=== PATIENT | female | born 1995 | race Caucasian/White ===

== ENCOUNTER 2020-06-26 11:02 | Emergency (ER) | payer OTHER, SELFPAY ==
[~2020-06-26 11:02] MED LIST: OMEPRAZOLE20 M1 PO; ONDANSETRON ODT4 MG SL
[2020-06-26 12:04] LABS: HEMOGLOBIN 15.1 gm/dl (12.3-15.3); RED BLOOD COUNT 4.86 M/UL (4.00-5.10); WHITE BLOOD COUNT 9.6 K/UL (4.5-11.0)
[2020-06-26 12:36] LABS: BUN/CREATININE RATIO 26 (0-10)
[2020-09-24] MEDS ORDERED: HYDROCODON-ACE1 EAC4 PO (08:23)
== END 2020-06-26 13:13 | disposition home or self-care (01) ==
LOC: ER1 11:02
PROVIDERS: Physician Assistant
DX: R11.2 Nausea with vomiting, unspecified (principal)
CPT/HCPCS: 80053; 82150; 83690; 85025; 96374; 96375; 99283; G0480; J1885; J2550

== ENCOUNTER 2020-08-01 08:16 | Emergency (ER) | payer OTHER ==
[2020-08-01 09:13] LABS: HEMOGLOBIN 14.9 gm/dl (12.3-15.3); RED BLOOD COUNT 4.73 M/UL (4.00-5.10); WHITE BLOOD COUNT 12.6 K/UL (4.5-11.0)
[2020-08-01 09:34] LABS: BUN/CREATININE RATIO 11 (0-10)
[2020-08-01] MEDS ORDERED: CARAFATE 1 GM TA1 GM PO (14:15)
[2020-08-01] MEDS ORDERED: ONDANSETRON ODT4 MG SL (14:15)
[2020-08-01] MEDS ORDERED: PROTONIX40 MG PO (14:15)
[2020-08-02] MEDS ORDERED: AFIRMELLE-28 T1 EACH PO (10:09)
[2020-09-24] MEDS ORDERED: HYDROCODON-ACE1 EAC4 PO (08:23)
== END 2020-08-01 14:35 | disposition home or self-care (01) ==
LOC: ER1 08:16
PROVIDERS: Physician Assistant
DX: N83.201 Unspecified ovarian cyst, right side (principal); E86.0 Dehydration; E87.6 Hypokalemia; F17.200 Nicotine dependence, unspecified, uncomplicated
CPT/HCPCS: 36415; 76830; 80053; 81001; 83690; 84703; 85025; 96374; 96375; 99284; C9113; J2550; J7030; Q9967

== ENCOUNTER 2020-08-02 02:42 | Emergency (ER) | payer OTHER ==
[~2020-08-02] VITALS: Ht 180.3 cm; Wt 81.6 kg
[~2020-08-02 02:42] MED LIST changes: +CARAFATE 1 GM TA1 GM PO; +PROTONIX40 MG PO
[2020-08-02 03:37] LABS: HEMOGLOBIN 13.5 gm/dl (12.3-15.3); RED BLOOD COUNT 4.31 M/UL (4.00-5.10); WHITE BLOOD COUNT 11.2 K/UL (4.5-11.0)
[2020-08-02 03:57] LABS: BUN/CREATININE RATIO 11 (0-10)
[2020-08-02] MEDS ORDERED: AFIRMELLE-28 T1 EACH PO (10:09)
[2020-08-03] MEDS ORDERED: SPRINTEC 28 DA1 EACH PO (17:20)
[2020-09-24] MEDS ORDERED: HYDROCODON-ACE1 EAC4 PO (08:23)
== END 2020-08-02 15:55 | disposition home or self-care (01) ==
LOC: ER1 02:42 → CDU 03:59 → ER1 03:59 → CDU 15:40 → ER1 15:55
PROVIDERS: Physician Assistant
DX: N83.201 Unspecified ovarian cyst, right side (principal); K21.9 Gastro-esophageal reflux disease without esophagitis; Z20.822 Contact with and (suspected) exposure to COVID-19
CPT/HCPCS: 36415; 80053; 85025; 86140; 99284; G0378; J1885; J2270; J2405; J2550; U0002

== ENCOUNTER 2020-08-03 07:01 | Day surgery (SDC) | payer OTHER ==
[~2020-08-03] VITALS: Ht 180.3 cm; Wt 54.4 kg
[~2020-08-03 07:01] MED LIST changes: +AFIRMELLE-28 T1 EACH PO
[2020-08-03 07:43] LABS: HEMOGLOBIN 13.7 gm/dl (12.3-15.3); RED BLOOD COUNT 4.45 M/UL (4.00-5.10); WHITE BLOOD COUNT 13.7 K/UL (4.5-11.0)
[2020-08-03 08:09] LABS: BUN/CREATININE RATIO 21 (0-10)
[2020-08-03] MEDS ORDERED: SPRINTEC 28 DA1 EACH PO (17:20)
--- NOTE | 2020-08-04 09:47 | NUR ---
0900 TOOK OVER PT CARE AT THIS TIME, PT IS GONE TO SURGERY AT THIS TIME, GONE PRIOR TO ME TAKING OVER CARE WCTM
[2020-08-04] MEDS ORDERED: DOCUSATE SODIU100 MG PO (10:03)
[2020-08-04] MEDS ORDERED: NAPROXEN250 MG PO (10:03)
[2020-08-04] MEDS ORDERED: TYLENOL 500 MG500 MG PO (10:03)
[2020-08-04] MEDS ORDERED: ROXICODONE TAB 55 MG PO (10:03)
--- NOTE | 2020-08-04 13:09 | NUR ---
1300 PT DISCHARGE HOME PER MD ORDERS, PT VOIDING WNL, NO NAUSEA OR VOMITING, TOLERATED FOOD, AMBULATING TO RESTROOM WITH NO ISSUES, NO C/O PAIN, DISCHARGED HOME WITH FAMILY, VERABLIZED UNDERSTANDING OF ALL INSTRUCTIONS.
[2020-09-24] MEDS ORDERED: HYDROCODON-ACE1 EAC4 PO (08:23)
== END 2020-08-04 13:01 | disposition home or self-care (01) ==
LOC: ER1 07:01 → OB 16:28 → OR 16:28 → OB 16:31 → OR 08-04 13:01
PROVIDERS: Emergency Medicine; Obstetrics & Gynecology
PROC: 0DJW4ZZ Inspection of Peritoneum, Percutaneous Endoscopic Approach (ICD-10-PCS; principal; 2020-08-04 08:00)
DX: N83.291 Other ovarian cyst, right side (principal); Z79.899 Other long term (current) drug therapy; Z20.822 Contact with and (suspected) exposure to COVID-19
CPT/HCPCS: 36415; 80053; 81001; 83690; 84703; 85025; 96374; 96375; 96376; 99285; G0378; J1100; J1170; J1885; J2001; J2250; J2270; J2405; J2550; J2704; J2710; J2765; J2795; J3010; J7030; J7120; Q9967

== ENCOUNTER 2020-08-06 03:01 | Emergency (ER) | payer OTHER ==
[~2020-08-06 03:01] MED LIST changes: +DOCUSATE SODIU100 MG PO; +NAPROXEN250 MG PO; +ROXICODONE TAB 55 MG PO; +SPRINTEC 28 DA1 EACH PO; +TYLENOL 500 MG500 MG PO
[2020-08-06 04:01] LABS: HEMOGLOBIN 13.7 gm/dl (12.3-15.3); RED BLOOD COUNT 4.42 M/UL (4.00-5.10)
[2020-08-06 04:12] LABS: BUN/CREATININE RATIO 11 (0-10)
[2020-08-06] MEDS ORDERED: PROTONIX40 MG PO (09:07)
[2020-09-24] MEDS ORDERED: HYDROCODON-ACE1 EAC4 PO (08:23)
== END 2020-08-06 09:36 | disposition home or self-care (01) ==
LOC: ER1 03:01
PROVIDERS: Physician Assistant
DX: R10.13 Epigastric pain (principal); R11.2 Nausea with vomiting, unspecified
CPT/HCPCS: 76705; 80053; 83690; 85025; 96374; 96375; 99284; C9113; J1885; J2270; J2405; J2550; J7030

== ENCOUNTER 2020-08-07 12:32 | Observation (INO) | payer OTHER ==
[~2020-08-07] VITALS: Ht 180.3 cm; Wt 81.6 kg
[2020-08-07 16:22] LABS: HEMOGLOBIN 13.6 gm/dl (12.3-15.3); RED BLOOD COUNT 4.34 M/UL (4.00-5.10); WHITE BLOOD COUNT 14.3 K/UL (4.5-11.0)
[2020-08-07 16:42] LABS: BUN/CREATININE RATIO 19 (0-10)
[2020-08-08 04:52] LABS: HEMOGLOBIN 12.3 gm/dl (12.3-15.3); RED BLOOD COUNT 3.99 M/UL (4.00-5.10)
[2020-08-08 04:53] LABS: WHITE BLOOD COUNT 10.5 K/UL (4.5-11.0)
[2020-08-08 05:15] LABS: BUN/CREATININE RATIO 13 (0-10)
[2020-08-09 06:44] LABS: BUN/CREATININE RATIO 18 (0-10)
[2020-09-24] MEDS ORDERED: HYDROCODON-ACE1 EAC4 PO (08:23)
== END 2020-08-09 12:55 | disposition home or self-care (01) ==
LOC: ER1 12:32 → MED SURG 4 17:32 → ER1 17:32 → CDU 17:32 → MED SURG 4 19:03
PROVIDERS: Emergency Medicine; Internal Medicine Gastroenterology; Physician Assistant Medical; ADMIT Internal Medicine
PROC: 0DB98ZX Excision of Duodenum, Via Natural or Artificial Opening Endoscopic, Diagnostic (ICD-10-PCS; principal; 2020-08-09 10:23)
DX: K82.8 Other specified diseases of gallbladder (principal); R10.13 Epigastric pain; R11.2 Nausea with vomiting, unspecified; F12.90 Cannabis use, unspecified, uncomplicated; E28.2 Polycystic ovarian syndrome; E87.6 Hypokalemia; Z98.890 Other specified postprocedural states; Z20.822 Contact with and (suspected) exposure to COVID-19
CPT/HCPCS: 36415; 76705; 78227; 80048; 80053; 80307; 81001; 83690; 83735; 84703; 85025; 85027; 96374; 96375; 96376; 99284; 99285; C9113; G0378; J1885; J2250; J2270; J2405; J2550; J3010; J7030; J7040; U0002

== ENCOUNTER → 2020-08-10 | Outpatient (CLI) | payer OTHER ==
[~2020-08-10] MED LIST changes: +HYDROCODON-ACE1 EAC4 PO
== END ==
LOC: NM 08:51
DX: R10.10 Upper abdominal pain, unspecified (principal); R11.0 Nausea; R93.2 Abnormal findings on diagnostic imaging of liver and biliary tract
CPT/HCPCS: 78227; A9537; J2805

== ENCOUNTER → 2020-09-24 | Day surgery (SDC) | payer OTHER | END | disposition home or self-care (01) | LOC: OR 06:04 | DX: K80.50 Calculus of bile duct without cholangitis or cholecystitis without obstruction (principal); Z79.899 Other long term (current) drug therapy | CPT/HCPCS: 84703; J0690; J1100; J1885; J2001; J2250; J2405; J2704; J2710; J3010; J7030; J7120 ==

== ENCOUNTER 2021-12-04 17:48 | Emergency (ER) | payer OTHER ==
[2021-12-04 18:24] LABS: HEMOGLOBIN 15.5 gm/dl (12.3-15.3); RED BLOOD COUNT 4.89 M/UL (4.00-5.10); WHITE BLOOD COUNT 13.3 K/UL (4.5-11.0)
[2021-12-04 18:40] LABS: BUN/CREATININE RATIO 25 (0-10)
[2021-12-04] MEDS ORDERED: CEPHALEXIN500 M1 PO (20:55)
[2021-12-04] MEDS ORDERED: PHENERGAN 25 MG25 M1 PO (20:55)
[2021-12-04] MEDS ORDERED: OMEPRAZOLE20 M1 PO (20:55)
[2021-12-04] MEDS ORDERED: ONDANSETRON ODT4 MG SL (20:55)
== END 2021-12-04 23:40 | disposition home or self-care (01) ==
LOC: ER1 17:48
PROVIDERS: Physician Assistant
DX: R10.13 Epigastric pain (principal); R11.2 Nausea with vomiting, unspecified; E86.0 Dehydration; Z90.49 Acquired absence of other specified parts of digestive tract
CPT/HCPCS: 71045; 80053; 81001; 83690; 84703; 85025; 87086; 96374; 96375; 96376; 99284; C9113; J2060; J2405; J2550